=== PATIENT | female | born 1970 | race Caucasian/White ===

== ENCOUNTER 2017-03-21 16:10 | Emergency (ER) | payer OTHER ==
[~2017-03-21] VITALS: Ht 160 cm; Wt 146.5 kg
[~2017-03-21 16:10] MED LIST: ACET-2047 PO; DOXY-17 PO; PROM6.25 PO
[2017-03-21 16:19] VITALS: Ht 160 cm; Wt 146.5 kg
[2017-03-21] MEDS ORDERED: KETOROLAC 60 MG INJ IM STA (17:35)
[2017-03-21 18:14] LABS: URINE BLOOD (Dip) POC Negative (NEGATIVE)
[2017-03-21] MEDS ORDERED: TRAM50TA2 PO (18:40)
--- NOTE | 2017-03-21 18:44 | ERD ---
ER Documentation Chief Complaint Date/Time DATE: 03/21/17 TIME: 18:42 Chief Complaint LOWER BACK PAIN X 2 DAYS HPI This is a morbidly obese 47-year-old female who presents with right-sided lower back pain that she has had for 2 days. She denies any trauma. She denies any dysuria hematuria or increased urinary frequency. Denies any fever. Denies any numbness or tingling. She has been taking Motrin without relief of her symptoms. ROS All systems reviewed and are negative except as per history of present illness. Medications Home Meds Active Scripts Tramadol HCl (Tramadol HCl) 50 Mg Tablet, 50 MG PO Q4 Y for PAIN, #20 TAB Prov:ZAY DIEZ PA-C 03/21/17 Doxycycline* (Vibramycin*) 100 Mg Capsule, 100 MG PO BID, #20 EA Prov:STEVEN SHERWOOD DO 10/04/15 Promethazine w/Codeine* (Phenergan w/Codeine* Syrup) 5 Ml Syrup, 5 ML PO Q4H Y for COUGH, #120 ML Prov:STEVEN SHERWOOD DO 10/04/15 Reported Medications Acetaminophen* (Acetaminophen*) 650 Mg Tablet, 650 MG PO Q4H Y for PAIN AND OR ELEVATED TEMP, TAB 03/30/15 Allergies Allergies: Coded Allergies: No Known Allergy (Unverified , 10/04/15) PMhx/Soc History of Surgery: Yes (tubal ligation ) Hx Miscellaneous Medical Probl: Yes (arthritis ) Hx Alcohol Use: No Hx Substance Use: No Hx Tobacco Use: No Smoking Status: Never smoker FmHx Family History: No diabetes Physical Exam Vitals Vital Signs Date Time Temp Pulse Resp B/P Pulse Ox O2 Delivery O2 Flow Rate FiO2 03/21/17 16:19 98.2 77 18 173/90 98 Physical Exam General: well developed, well nourished, alert, nontoxic, no distress Head: normocephalic, atraumatic Neck: Supple, nontender, no lymphadenopathy, no midline tenderness Respiratory: Clear to auscaultation bilaterally, speaks in full sentences, no use of accesory muscles or labored breathing, no rales, ronchi, or wheezing Cardiovascular: RRR, No murmurs GI: soft, non tender, non distended, negative murphys sign, negative mcburneys point tenderness, no cva tenderness bilaterally, no rebound or guarding Back: no midline tenderness, no step offs or bony abnormalities, sensation to light touch in tact Extremities: moving all extremities normally, normal gait, no edema Results 24 hrs Laboratory Tests Test 03/21/17 18:15 Bedside Urine pH (LAB) 6.0 Bedside Urine Protein (LAB) Negative Bedside Urine Glucose (UA) Negative Bedside Urine Ketones (LAB) Negative Bedside Urine Blood Negative Bedside Urine Nitrite (LAB) Negative Bedside Urine Leukocyte Esterase (L Negative Current Medications Medications (Trade) Dose Ordered Sig/Josue Route PRN Reason Start Time Stop Time Status Last Admin Dose Admin Ketorolac Tromethamine (Toradol) 60 mg ONCE STAT IM 03/21/17 17:35 03/21/17 17:36 DC 03/21/17 18:30 Procedures/MDM 47-year-old morbidly obese female has back pain. She is in no acute distress. She has no GI tenderness. She is ambulatory. There is no trauma. Urine is negative for infection. She has been taking Motrin without relief so I gave her a small amount of tramadol. Recommended this patient follow up with her primary care doctor within 48 hours or return to the emergency room for any worsening of symptoms. However this time I do believe there is suitable for outpatient management. I answered all their questions and they agreed with the plan and were discharged home. Departure Diagnosis: Primary Impression: Back pain Condition: Stable Patient Instructions: Back Pain (Acute Or Chronic) Additional Instructions: Call your primary care doctor TOMORROW for an appointment during the next 1-2 days.See the doctor sooner or return here if your condition worsens before your appointment time. ZAY DIEZ PA-C March 21, 2017 18:44
[2017-03-21 18:54] VITALS: BP 144/69; PULSE 69; RESP 16
== END 2017-03-21 18:55 | disposition home or self-care (01) ==
LOC: FTE 16:10
DX: M54.5 Low back pain (principal); E66.01 Morbid (severe) obesity due to excess calories; Z68.43 Body mass index [BMI] 50.0-59.9, adult
CPT/HCPCS: 81003; 96372; J1885; Z7502

== ENCOUNTER → 2017-12-16 | Outpatient (CLI) | END | disposition home or self-care (01) ==

== ENCOUNTER → 2018-01-16 | Outpatient (CLI) | END | disposition home or self-care (01) ==

== ENCOUNTER 2018-04-15 09:08 | Emergency (ER) | END 2018-04-15 12:33 | disposition home or self-care (01) ==

== ENCOUNTER 2019-02-17 09:53 | Emergency (ER) | payer OTHER ==
[~2019-02-17] VITALS: Ht 152.4 cm; Wt 153.2 kg
[~2019-02-17 09:53] MED LIST changes: +ALBU8.5H8 INH; -DOXY-17 PO; +DOXY100C PO; +HC30CR25 TOP; +TRAM50TA2 PO
[2019-02-17 10:23] VITALS: BP 151/86; PULSE 68; RESP 24; Ht 152.4 cm; Wt 153.2 kg
[2019-02-17] MEDS ORDERED: PRED20TA PO (11:43)
[2019-02-17] MEDS ORDERED: AZIT250T PO (11:43)
[2019-02-17] MEDS ORDERED: D-ME473S2 PO (11:43)
[2019-02-17] MEDS ORDERED: ALBU18HF INHALATION (11:43)
--- NOTE | 2019-02-17 11:47 | ERD ---
ER Documentation Chief Complaint Chief Complaint COUGH X1 WEEK HPI 49-year-old female presents with productive cough for last week. She may have wheezing at night. She denies chest pain, vomiting or abdominal pain. She denies history of asthma. She is here with a daughter with similar symptoms. ROS All systems reviewed and are negative except as per history of present illness. Medications Home Meds Active Scripts Dextromethorphan Hb-Promethazine Hcl* (Promethazine DM* Syrup) 473 Ml Syrup, 5 ML PO Q6 PRN for COUGH for 5 Days, ML Prov:FELIPE GARCIA MD 02/17/19 Albuterol Sulfate* (Ventolin HFA*) 18 Gm Hfa.aer.ad, 2 PUFF INHALATION Q4H, #1 INHALER Prov:FELIPE GARCIA MD 02/17/19 Prednisone* (Prednisone*) 20 Mg Tab, 40 MG PO DAILY for 5 Days, TAB Prov:FELIPE GARCIA MD 02/17/19 Azithromycin* (Zithromax*) 250 Mg Tablet, 250 MG PO .DucPACK DIRECTED, #6 TAB TAKE 500 MG (2 TABS) THE FIRST DAY THEN 250 MG (1 TAB) DAYS 2-5 Prov:FELIPE GARCIA MD 02/17/19 Albuterol Sulfate* (Proair HFA*) 8.5 Gm Hfa.aer.ad, 2 PUFF INH Q4, #1 INHALER Prov:PATTI JUDGE PA-C 04/15/18 Hydrocortisone* Topical (Hydrocortisone* Topical) 2.5%-28.3 Gm Cream..g., 1 APPLIC TOP BID, #1 TUB Prov:PATTI JUDGE PA-C 04/15/18 Tramadol HCl (Tramadol HCl) 50 Mg Tablet, 50 MG PO Q4 PRN for PAIN, #20 TAB Prov:ZAY DIEZ PA-C 03/21/17 Doxycycline* (Vibramycin*) 100 Mg Capsule, 100 MG PO BID, #20 EA Prov:STEVEN SHERWOOD DO 10/04/15 Promethazine w/Codeine* (Phenergan w/Codeine* Syrup) 5 Ml Syrup, 5 ML PO Q4H PRN for COUGH, #120 ML Prov:STEVEN SHERWOOD DO 10/04/15 Reported Medications Acetaminophen* (Acetaminophen*) 650 Mg Tablet, 650 MG PO Q4H PRN for PAIN AND OR ELEVATED TEMP, TAB 03/30/15 Allergies Allergies: Coded Allergies: No Known Allergy (Unverified , 10/04/15) PMhx/Soc History of Surgery: Yes (tubal ligation ) Anesthesia Reaction: No Hx Neurological Disorder: No Hx Respiratory Disorders: No Hx Cardiac Disorders: No Hx Psychiatric Problems: No Hx Miscellaneous Medical Probl: Yes (arthritis ) Hx Alcohol Use: No Hx Substance Use: No Hx Tobacco Use: No FmHx Family History: No diabetes, No coronary disease, No other Physical Exam Vitals Vital Signs Date Temp Pulse Resp B/P (MAP) Pulse Ox O2 O2 Flow FiO2 Time Delivery Rate 02/17/19 98.2 68 24 151/86 96 10:23 (107) Physical Exam Const: No acute distress Head: Atraumatic Eyes: Normal Conjunctiva ENT: Normal External Ears, Nose and Mouth. oropharynx normal. Decreased light reflex and yellow fluid bilateral TMs. Neck: Full range of motion. No meningismus. Resp: Clear to auscultation bilaterally rhonchi with forced wheeze with no wheeze at rest no rales or retractions. Cardio: Regular rate and rhythm, no murmurs Abd: Soft, non tender, non distended. Normal bowel sounds Skin: No petechiae or rashes Back: No midline or flank tenderness Ext: No cyanosis, or edema Neur: Awake and alert Psych: Normal Mood and Affect Procedures/MDM Patient presents with productive cough and mild wheeze for last week. She has no signs of hypoxemia, rest or stress, signs of pneumonia. She is signs of mild otitis media. Will treat given the duration and patient request empirically with Zithromax, prednisone, Ventolin, [id number] cough syrup, primary care follow-up and return precautions. The patient was stable with no new complaints during the ER course. Clinically, there is no current evidence to suggest meningitis, sepsis, acute abdomen, pneumonia, stroke, acute coronary syndrome, pulmonary embolism, aortic dissection or any other emergent condition appearing to require further evaluation or hospitalization. Patient counseled regarding my diagnostic impression and care plan. Prior to discharge all questions answered. Pt agrees with treatment plan and understands strict return precautions. Pt is instructed to follow up with primary care provider within 24- 48 hours. Precautionary instructions provided including instructions to return to the ER if not improving or for any worsening or changing symptoms or concerns. Departure Diagnosis: Primary Impression: URI, acute Additional Impression: Cough Condition: Stable Patient Instructions: Bronchitis With Wheezing (Adult) Referrals: DOCTOR,NOT ON STAFF (PCP) Additional Instructions: Cheque otro vez con [facility] doctor primario en el proximo [place] or regresa para mas o nueva simptomas. FELIPE GARCIA MD Feb 17, 2019 11:47
== END 2019-02-17 12:15 | disposition home or self-care (01) ==
LOC: FTE 09:53
DX: J06.9 Acute upper respiratory infection, unspecified (principal)
CPT/HCPCS: 99283

== ENCOUNTER 2019-03-30 18:33 | Emergency (ER) | payer OTHER ==
[~2019-03-30] VITALS: Ht 160 cm; Wt 155.1 kg
[~2019-03-30 18:33] MED LIST changes: +ALBU18HF INHALATION; +AZIT250T PO; +D-ME473S2 PO; +PRED20TA PO
[2019-03-30 18:35] VITALS: BP 178/81; PULSE 77; RESP 18; Ht 160 cm; Wt 155.1 kg
--- NOTE | 2019-03-30 18:48 | EN ---
Date/Time of Note Date/Time of Note DATE: 03/30/19 TIME: 18:47 ER Progress Note MSE in ED 3. Itching of rectum despite Lotrimin and hydrocortisone. Recommend rectal exam and ED2 FELIPE GARCIA MD March 30, 2019 18:48
[2019-03-30] MEDS ORDERED: BEN50 PO (19:29)
[2019-03-30] MEDS ORDERED: TERB15CR6 TOP (19:29)
[2019-03-30] MEDS ORDERED: HC30CR25 TOP (19:29)
[2019-03-30] MEDS ORDERED: FLUC150T PO (19:29)
--- NOTE | 2019-03-30 19:39 | ERD ---
ER Documentation Chief Complaint Chief Complaint RASH ON BUTTOCKS X'S 3 MONTHS HPI 49-year-old female presents with an itchy rash in the cracks of the buttocks for last 3 months. She was prescribed Lotrimin and hydrocortisone by primary care without relief. She denies fevers, redness, discharge, bleeding. ROS All systems reviewed and are negative except as per history of present illness. Medications Home Meds Active Scripts Diphenhydramine Hcl* (Benadryl*) 50 Mg Cap, 50 MG PO Q6 PRN for ITCHING, #30 CAP Prov:FELIPE GARCIA MD 03/30/19 Hydrocortisone* Topical (Hydrocortisone* Topical) 2.5%-28.3 Gm Cream..g., 1 ANNABELLE LIC TOP BID, #1 TUB Prov:FELIPE GARCIA MD 03/30/19 Terbinafine* (Athlete's Foot AF*) 1% - 15 Gm Cream..g., 1 APPLIC TOP BID for 10 Days, TUB Prov:FELIPE GARCIA MD 03/30/19 Fluconazole* (Diflucan*) 150 Mg Tablet, 150 MG PO ONCE, #2 TAB Repeat in 1 week. Prov:FELIPE GARCIA MD 03/30/19 Dextromethorphan Hb-Promethazine Hcl* (Promethazine DM* Syrup) 473 Ml Syrup, 5 ML PO Q6 PRN for COUGH for 5 Days, ML Prov:FELIPE GARCIA MD 02/17/19 Albuterol Sulfate* (Ventolin HFA*) 18 Gm Hfa.aer.ad, 2 PUFF INHALATION Q4H, #1 INHALER Prov:FELIPE GARCIA MD 02/17/19 Prednisone* (Prednisone*) 20 Mg Tab, 40 MG PO DAILY for 5 Days, TAB Prov:FELIPE GARCIA MD 02/17/19 Azithromycin* (Zithromax*) 250 Mg Tablet, 250 MG PO .JOSEPH DIRECTED, #6 TAB TAKE 500 MG (2 TABS) THE FIRST DAY THEN 250 MG (1 TAB) DAYS 2-5 Prov:FELIPE GARCIA MD 02/17/19 Albuterol Sulfate* (Proair HFA*) 8.5 Gm Hfa.aer.ad, 2 PUFF INH Q4, #1 INHALER Prov:PATTI JUDGE PA-C 04/15/18 Hydrocortisone* Topical (Hydrocortisone* Topical) 2.5%-28.3 Gm Cream..g., 1 APPLIC TOP BID, #1 TUB Prov:PATTI JUDGE PA-C 04/15/18 Tramadol HCl (Tramadol HCl) 50 Mg Tablet, 50 MG PO Q4 PRN for PAIN, #20 TAB Prov:ZAY DIEZ PA-C 03/21/17 Doxycycline* (Vibramycin*) 100 Mg Capsule, 100 MG PO BID, #20 EA Prov:STEVEN SHERWOOD DO 10/04/15 Promethazine w/Codeine* (Phenergan w/Codeine* Syrup) 5 Ml Syrup, 5 ML PO Q4H PRN for COUGH, #120 ML Prov:BRENDA SHERWOODRAM DO 10/04/15 Reported Medications Acetaminophen* (Acetaminophen*) 650 Mg Tablet, 650 MG PO Q4H PRN for PAIN AND OR ELEVATED TEMP, TAB 03/30/15 Allergies Allergies: Coded Allergies: No Known Allergy (Unverified , 10/04/15) PMhx/Soc History of Surgery: Yes (tubal ligation ) Anesthesia Reaction: No Hx Neurological Disorder: No Hx Respiratory Disorders: No Hx Cardiac Disorders: No Hx Psychiatric Problems: No Hx Miscellaneous Medical Probl: Yes (arthritis ) Hx Alcohol Use: No Hx Substance Use: No Hx Tobacco Use: No Smoking Status: Never smoker FmHx Family History: No diabetes, No coronary disease, No other Physical Exam Vitals Vital Signs Date Temp Pulse Resp B/P (MAP) Pulse Ox O2 O2 Flow FiO2 Time Delivery Rate 03/30/19 98.2 77 18 178/81 98 18:35 (113) Physical Exam Const: No acute distress Head: Atraumatic Eyes: Normal Conjunctiva ENT: Normal External Ears, Nose and Mouth. Neck: Full range of motion. No meningismus. Resp: Clear to auscultation bilaterally Cardio: Regular rate and rhythm, no murmurs Abd: Soft, non tender, non distended. Normal bowel sounds Skin: No petechiae or purpura. Examination with pain coordinator shows irritation in the creases of the buttocks and external rectum area. No induration, fluctuance, discharge or bleeding. Back: No midline or flank tenderness Ext: No cyanosis, or edema Neur: Awake and alert Psych: Normal Mood and Affect Procedures/MDM Patient presents with signs and symptoms of tinea cruris. She has no signs of cellulitis, purpura, sepsis, life-threatening rashes or abscess. She will be treated with Lamisil, Diflucan, hydrocortisone and Benadryl. The patient was stable with no new complaints during the ER course. Clinically, there is no current evidence to suggest meningitis, sepsis, acute abdomen, pneumonia, stroke, acute coronary syndrome, pulmonary embolism, aortic dissection or any other emergent condition appearing to require further evaluation or hospitalization. Patient counseled regarding my diagnostic impression and care plan. Prior to discharge all questions answered. Pt agrees with treatment plan and understands strict return precautions. Pt is instructed to follow up with primary care provider within 24-48 hours. Precautionary instructions provided including instructions to return to the ER if not improving or for any worsening or changing symptoms or concerns. Disclaimer: Inadvertent spelling and grammatical errors are likely due to EHR/dictation software use and do not reflect on the overall quality of patient care. Also, please note that the electronic time recorded on this note does not necessarily reflect the actual time of the patient encounter. Departure Diagnosis: Primary Impression: Rash Condition: Stable Patient Instructions: Tinea Cruris, General Referrals: DOCTOR,NOT ON STAFF (PCP) Additional Instructions: Cheque otro vez con [facility] doctor primario en el proximo [place] or regresa para mas o nueva simptomas. FELIPE GARCIA MD March 30, 2019 19:39
== END 2019-03-30 19:46 | disposition home or self-care (01) ==
LOC: FTE 18:33
DX: R21 Rash and other nonspecific skin eruption (principal)
CPT/HCPCS: 99283